=== PATIENT | male | born 1930 | race Caucasian/White ===

== ENCOUNTER 2016-09-30 10:55 | Inpatient (IN) | payer MEDICARE ==
--- NOTE | ~2016-09-30 | CN ---
Consultation Report [facility] [address] [place]. [address] NAME: AR VELÁSQUEZ : 32 STATUS : ADM IN PAT#: [id number] AGE: 85 ADM/REG DATE : 09/30/16 MR#: [id number] REPORT SERV DATE: 10/01/16 DICTATED BY: SKYLAR TIPTON JR. DATE: 10/01/16 REPORT STATUS : Draft TRANSCRIBED BY: MODEmery DATE: 10/01/16 CARDIOLOGY CONSULTATION DATE OF CONSULTATION: 10/01/2016 REFERRING PHYSICIANS: Dr. Caitlyn Humphrey, Dr. Hernandez. REASON FOR CONSULTATION: Regarding acute evm-HL-rwtxwgstc VA in the setting of acute kidney injury and significant anemia. HISTORY OF PRESENT ILLNESS: Ar Velásquez is an 85-year-old white male, status post CABG in the distant past with bare metal stenting since that time. He was doing well when seen in the office last office visit several months ago without angina. He began having left shoulder and left upper extremity pain and discomfort, improvement with nitroglycerin per EMS. No further chest pain since arriving at the hospital. Pertinent laboratory studies included initial troponin of only 0.1, rising today to 1.4. Hemoglobin 7.0, today 7.4 with normal MCV. BUN and creatinine 56 and 2.3 respectively. EKG shows old inferior infarction with old ventricular premature complexes with right bundle branch block conduction. 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 ALLERGIES: CODEINE ALLERGY. MEDICATIONS: Home medication list is reviewed. Hospital medicine list reviewed. SOCIAL HISTORY: Nonsmoker. Supportive family. No illicit drugs. FAMILY HISTORY: Noncontributory. PREVIOUS SURGICAL HISTORY: See above plus cholecystectomy. PHYSICAL EXAMINATION: VITAL SIGNS: Blood pressure 142/65, pulse is 66 and regular, respirations 18, afebrile. HEENT: No xanthelasma. NECK: Jugular venous distention is present at 45 degrees, no thyromegaly, no carotid bruit. LUNGS: Clear to auscultation and percussion. COR: No thrills, heaves, normal S1, S2. No gallop. No rub. Mitral insufficiency murmur, Consultation Report [facility] [address] [place]. [address] NAME: AR VELÁSQUEZ : 32 STATUS : ADM IN PAT#: [id number] AGE: 85 ADM/REG DATE : 09/30/16 MR#: [id number] REPORT SERV DATE: 10/01/16 DICTATED BY: SKYLAR TIPTON JR. DATE: 10/01/16 REPORT STATUS : Draft TRANSCRIBED BY: MODL DATE: 10/01/16 no third sound appreciated. ABD: Soft, nontender, no hepatosplenomegaly, no mass. EXT: Without edema or pulse deficit. MS: Back without spine or costovertebral angle tenderness. NEURO: Symmetric findings. DISCUSSION: Acute cbr-GH-uzhouxscw VA in the setting of profound anemia with normocytic indices. Acute kidney injury with a rise in BUN and creatinine to 56 and 2.3, in the past creatinine approximately 1.7. No further chest pain. Agree with transfusion 1 unit. Agree with nitrates. Conservative treatment for now in view of profound anemia, unexplained, and acute kidney injury. Renal consult. Echocardiogram. Thank you for this consultation. AAMIR/SHARITA Skylar Tipton Jr., M.D. / [id number] CC: Alessia Yan M.D.
--- NOTE | ~2016-09-30 | CN ---
Consultation Report [facility] [address] [place]. [address] NAME: AR VELÁSQUEZ : 32 STATUS : ADM IN PAT#: [id number] AGE: 85 ADM/REG DATE : 09/30/16 MR#: [id number] REPORT SERV DATE: 10/01/16 DICTATED BY: DATE: REPORT STATUS : Draft TRANSCRIBED BY: MODEmery DATE: 10/01/16 CONSULTATION REPORT DATE OF CONSULTATION: REASON FOR CONSULTATION: Acute kidney injury. HISTORY OF PRESENT ILLNESS: Mr. Velásquez is an 85-year-old white male with a history of CKD, stage III, follows in our office with Dr. Sotomayor with baseline creatinine of 1.6 to 2. On his last two office visits, his creatinine has been around 1.5. His last was in the middle of last summer. He presented to the hospital yesterday with chest pain. He states he has really not been feeling well for approximately a month and stated he was having some decreased activity tolerance. 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 He states Friday he had a good day, but then awoke Friday morning not feeling well, developed chest pain, and presented to the emergency department. He was found to have elevated troponin. He was also found to have a creatinine of 2.4, it is down to 2.2 with hydration overnight. BELKIS inhibitor and Lasix have both been held, and we have been asked to see him in consultation. His EF has gone from 45 % to 47%, down to 40%. He has severe MR. He states that has been usual for some time now. He states he feels much better today. He has also been found to have significant anemia. On his last office visit in October, his hemoglobin was 14 and it is 7 on check here. He denies any melena and no bright red blood per rectum. He states that a couple of days prior to presentation he was having trouble eating and some problems with constipation. PAST MEDICAL HISTORY: CKD; diabetes; hypertension; hyperlipidemia; atrial fibrillation; coronary artery disease, status post bypass and stenting; severe mitral regurg; and PVCs. He has had a cholecystectomy and coronary bypass. FAMILY MEDICAL HISTORY: MO. SOCIAL HISTORY: He is , lives with . He is very active. He has distant history of tobacco. No alcohol or illicit drug use. ALLERGIES: CODEINE. MEDICATIONS: At home were aspirin, atorvastatin, Caltrate with vitamin D, Coreg, Plavix, Lasix, glipizide, and lisinopril, and here the Lasix and lisinopril have both been held. REVIEW OF SYSTEMS: A 12-point review of systems obtained, negative with the exception of that in the HPI. PHYSICAL EXAMINATION: VITAL SIGNS: Temp 97.6, blood pressure 138/64, pulse 60, respiratory rate 16, and O2 Consultation Report [facility] [address] [place]. [address] NAME: AR VELÁSQUEZ WALTER : 32 STATUS : ADM IN [facility]#: [id number] AGE: 85 ADM/REG DATE : 09/30/16 MR#: [id number] REPORT SERV DATE: 10/01/16 DICTATED BY: DATE: REPORT STATUS : Draft TRANSCRIBED BY: MODL DATE: 10/01/16 saturation is 98% on 2 liters. GENERAL: This is a pleasant, cooperative, white male. He is awake, alert, and oriented x3, in no acute distress, and answers questions appropriately. HEENT: Normocephalic and atraumatic. Conjunctivae are clear. Sclerae are anicteric. Oral mucosa is moist. NECK: Supple. Neck veins flat. RESPIRATIONS: Even and unlabored. Breath sounds are clear to auscultation. HEART: Rate is regular. I did not hear any rub, but he does have a 2/6 systolic ejection murmur. No gallop. ABDOMEN: Soft and nontender. Bowel sounds are active. No masses or hepatosplenomegaly. No bruits. No CVA tenderness. BACK: Within normal limits. EXTREMITIES: No edema, cyanosis, or clubbing. SKIN: Warm, dry, and intact. No unusual rashes or skin lesions. NEURO: Generalized weakness. No focal deficits. Mood and affect, pleasant and appropriate. PERTINENT LABS AND X-RAYS: Sodium 146, potassium 4.5, chloride 111, CO2 of 27, BUN 56, creatinine of 2.2, and calcium of 8. WBC 6, H and H 7 and 23, and platelets 180,000. Last troponin was 1.42. Hemoglobin A1c of 7.9. He has a left atrophic kidney on a renal ultrasound. No obstruction. IMPRESSION: 1. Acute kidney injury. 2. Chronic kidney disease, stage III. 3. Anemia, that is acute. 4. Pzb-VX-rurebpocq myocardial infarction. 5. Hypertension. 6. Diabetes. 7. Severe mitral regurgitation. 8. Atrial fibrillation. PLAN/RECOMMENDATION: Acute kidney injury on CKD. Here with chest pain, yva-FD-wicjxeyhf [place]. Creatinine is down with IV fluids. His anemia is new and quite significant, wonder if anemia is the cause of his acute renal failure, plus or minus some dehydration. Agree with holding of BELKIS inhibitor and Lasix. We will order urine studies. We will follow along with you. Thank you for the consultation. DEX/SHARITA Dasha Consultation Report [address] [address] NAME: AR VELÁSQUEZ WALTER : 32 STATUS : ADM IN [facility]#: [id number] AGE: 85 ADM/REG DATE : 09/30/16 MR#: [id number] REPORT SERV DATE: 10/01/16 DICTATED BY: DATE: REPORT STATUS : Draft TRANSCRIBED BY: SHARITA DATE: 10/01/16 EMELINA Samson / [id number] CC: MD Prasanth Lindo M.D.
--- NOTE | ~2016-09-30 | HP ---
History And Physical [place] [address] [facility] [place]. [address] NAME: AR VELÁSQUEZ : 32 STATUS : ADM IN PAT#: [id number] AGE: 85 ADM/REG DATE : 09/30/16 MR#: [id number] REPORT SERV DATE: 09/30/16 DICTATED BY: JR. MILLER WILLIAM JOHN DATE: 09/30/16 REPORT STATUS : Draft TRANSCRIBED BY: SHARITA DATE: 09/30/16 DATE OF ADMISSION: 09/30/2016 AIR DIRECTOR: Sean Tipton M.D. HISTORY OF PRESENT ILLNESS: This is an 85-year-old male with a history of coronary artery disease, history of bypass graft who presents to the emergency room with complaint of left arm and neck pain. I discussed the case with Dr. Montgomery in the emergency room. The patient says he has had vertigo for one week with poor oral intake. He did well until this morning when he awakened at 5 a.m. feeling fine and at 6 a.m., he had sudden onset of sub axillary left arm and left neck pain, rated 5/10 without radiation. There is nausea but no vomiting. No diaphoresis, shortness of breath, or dizziness accompanying it. It resolved with medical attention/nitroglycerin. He summoned EMS and was given nitroglycerin, at which time the pain resolved. The patient is unsure if this is like his prior heart- related pain. The patient is followed by Dr. Tipton and Dr. Red. He says he has a nephrology appointment in December. He is unclear of his baseline creatinine. The patient is noted to have kidney injury as well as anemia, it is unclear of the duration. We have no labs at [facility] since 2013. He does say his stools are brown to yellow, never black, never red. Again, he is unsure of his baseline creatinine, but does have nephrology appointment scheduled. PAST MEDICAL HISTORY: Includes: 1. Coronary artery disease with bypass graft in 1994, myocardial infarction in 1994 and stents since. 2. History of left inguinal hernia repair. 3. Hypertension. 4. Dyslipidemia. 5. Diabetes mellitus type 2. 6. History of cholecystectomy. 7. History of parathyroidectomy. 8. History of congestive heart failure. 9. Chronic obstructive pulmonary disease. 10.History of mitral valve regurgitation. MEDICATIONS: Include aspirin 81 mg twice a day, Lipitor 80 daily, calcium plus D 600 daily, Coreg 3.125 b.i.d., Plavix 75 daily, Lasix 20 daily and 10 at night, glipizide 2.5 mg twice a day, lisinopril 20 mg twice a day. ALLERGIES: CODEINE WHICH MAKES HIM FEEL "LOOPY." FAMILY HISTORY: Mother at age 86 of congestive heart failure. Father at age 85 of complications of a hip fracture. History And Physical [address] [address] NAME: AR VELÁSQUEZ : 32 STATUS : ADM IN PAT#: [id number] AGE: 85 ADM/REG DATE : 09/30/16 MR#: [id number] REPORT SERV DATE: 09/30/16 DICTATED BY: JR. MILLER WILLIAM JOHN DATE: 09/30/16 REPORT STATUS : Draft TRANSCRIBED BY: SHARITA DATE: 09/30/16 SOCIAL HISTORY: Lives in [place] with his and great grandson. He is a retired labor. Denies alcohol or illicit drugs. He quit smoking for 50 years. Code status was discussed. He desires full resuscitative measures. REVIEW OF SYSTEMS: Negative and all 12 systems reviewed except he does admit to decreased appetite, nausea without vomiting, vertigo and "yellow" stools. PHYSICAL EXAMINATION: VITAL SIGNS: Temperature 98.2, blood pressure 152/58, heart rate 71, respiratory rate 16. GENERAL: The patient is alert and oriented, in no acute distress. HEENT: His pupils are equal, round, reactive to light. Extraocular motion intact. Sclerae anicteric. Oropharynx clear. NECK: Supple. There is no jugular venous distention, thyromegaly, bruits. LUNGS: Clear to auscultation bilaterally with symmetrical chest rise. CARDIOVASCULAR: S1 and S2. Point of maximal impulse is normal. There was a 4/6 holosystolic murmur at the apex. ABDOMEN: Soft, nontender, bowel sounds present. No hepatosplenomegaly. EXTREMITIES: Show no clubbing, cyanosis, edema. NEUROLOGIC: Cranial nerves II through XII are intact. Strength and sensation were full and equal throughout. LYMPH NODE SURVEY: Negative in cervical and supraclavicular regions. DERMATOLOGIC: No rash or other lesions noted. LABORATORY DATA: White count 7.4, hemoglobin 7, platelets 187, mean corpuscular volume of 82.6. PT 14.7 with an INR of 1.2. PTT of 32.2. Sodium 139, potassium 4.6, chloride 106, bicarb 28, BUN 68, creatinine 2.4, glucose 274, calcium 9, magnesium 2.4. Troponin I of 0.1. Chest x-ray, personally reviewed, showed no infiltrate. There was evidence of prior median sternotomy. EKG personally reviewed, shows sinus rhythm at rate of 60 with PVC noted and Q-waves in leads II, III and aVF. ASSESSMENT/PLAN: 85-year-old white male with, 1. Left arm and neck pain relieved with nitroglycerin with a history of coronary artery disease. Troponin of 0.01. EKG without acute changes. We will check an echocardiogram. Check troponin I q.[address] Tipton at patient's request. We will continue his Plavix, aspirin, and beta blockade. We will schedule for stress test. 2. Acute kidney injury with chronic kidney disease, unsure of baseline. He has had poor oral intake while on Lasix and BELKIS inhibitor. We will carefully hydrate. Check his renal ultrasound. Hold his lisinopril and Lasix. Recheck in the morning. May need Nephrology to see. 3. Anemia of uncertain etiology. We will check iron studies, B12, folate and occult blood as well as reticulocyte count. Given the presence of chest pain, we will go ahead and transfuse 1 unit packed red blood cells and recheck an H and H in the morning. 4. Coronary artery disease with history of bypass grafting and stent. 5. Hypertension. We will hold his BELKIS inhibitor. Give as needed hydralazine. 6. Diabetes mellitus type 2. We will hold his oral anti-hypoglycemics. Check hemoglobin History And Physical [address] [address] NAME: AR VELÁSQUEZ : 32 STATUS : ADM IN PAT#: [id number] AGE: 85 ADM/REG DATE : 09/30/16 MR#: [id number] REPORT SERV DATE: 09/30/16 DICTATED BY: JR. MILLER WILLIAM JOHN DATE: 09/30/16 REPORT STATUS : Draft TRANSCRIBED BY: SHARITA DATE: 09/30/[address] him on sliding scale insulin. 7. History of chronic obstructive pulmonary disease. We will continue his home medications. Of note, he is not on home medications. 8. I will follow this patient. WBereniceF/SHARITA Joel Miller Jr, MD / [id number] CC: Alessia Yan M.D.
--- NOTE | ~2016-09-30 | DS ---
Discharge Summary [facility] [address] [place]. [address] NAME: AR VELÁSQUEZ : 32 STATUS : DIS IN PAT#: [id number] AGE: 85 ADM/REG DATE : 09/30/16 MR#: [id number] REPORT SERV DATE: 10/03/16 DICTATED BY: BESS NAIR DATE: 10/02/16 REPORT STATUS : Draft TRANSCRIBED BY: SHARITA DATE: 10/02/16 ADMISSION DATE: 09/30/2016 DISCHARGE DATE: 10/02/2016 CONSULTATIONS: 1. Cardiology, Dr. Sean Tipton Jr. 2. [facility]. PROCEDURES: None. DISCHARGE DIAGNOSES: 1. Symptomatic anemia. 2. Iron deficiency anemia. 3. Severe mitral regurgitation. 4. Acute kidney injury on chronic kidney disease stage 3. 5. Demand ischemia. 6. Hypertension. 7. Diabetes mellitus type 2. 8. History of typical atrial flutter with successful ablation in 2013. 9. History of coronary artery disease, status post remote CABG in 1994. 10.History of chronic premature ventricular contractions. 11.History of chronic obstructive pulmonary disease. HISTORY OF PRESENT ILLNESS: For detailed HPI, please make reference to Dr. Hernandez's dictation on 09/30/2016. In brief, this is an 85-year-old male with medical history significant for coronary artery disease with history of remote bypass graft, who presented to the emergency department with left arm and neck pain. The patient was found to have a hemoglobin of 7. Troponin of 0.10. Creatinine of 2.4. An assessment of symptomatic anemia, acute kidney injury, and demand ischemia was made in the ER, and the patient was admitted to the Hospitalist Service. HOSPITAL COURSE: 1. Symptomatic anemia. The patient reported some neck pain, left hand pain with some dyspnea. Hemoglobin was 7 in the ER. The patient was transfused with one unit of blood due to possible symptoms of angina equivalents. The patient's H and H improved and remained stable at 7.5. The patient reported no further episode of chest discomfort or left arm pain. The patient had no evidence of acute GI bleed or blood loss. Hemoccult x2 was negative. The patient's iron studies revealed significant iron deficiency anemia. The patient was scheduled to have an IV iron infusion as an outpatient on 10/04/2016 at the [facility]. The patient was advised to continue followup with primary care physician as an outpatient. The patient was also advised to continue followup with Nephrology as outpatient. A possible etiology of iron deficiency anemia likely multifactorial, including anemia of chronic disease, nutritional iron deficiency, and chronic kidney disease. 2. Demand ischemia. The patient's troponin on presentation was 0.10, initially trended up and peaked at 1.42. Post transfusion with one unit of packed RBC, the patient's Discharge Summary [address] [address] NAME: AR VELÁSQUEZ : 32 STATUS : DIS IN PAT#: [id number] AGE: 85 ADM/REG DATE : 09/30/16 MR#: [id number] REPORT SERV DATE: 10/03/16 DICTATED BY: BESS NAIR DATE: 10/02/16 REPORT STATUS : Draft TRANSCRIBED BY: MODL DATE: 10/02/16 troponin trended down to 0.48. Etiology of elevated troponin is likely due to demand ischemia secondary to severe anemia. 3. Severe mitral regurgitation. The patient has had an echocardiogram, which confirmed the presence of severe mitral regurgitation. Cardiology discussed the finding with the patient. The patient agreed to have an outpatient mitral valve clip. Cardiology scheduled that appointment for the patient to return to Cardiology Clinic in four weeks' time. 4. Acute kidney injury on chronic kidney disease stage 3. The patient's creatinine on presentation was 2.41. The patient's last known baseline was 1.17. Etiology of acute kidney injury likely due to prerenal azotemia due to severe anemia and hypovolemia. The patient's creatinine trended down from 2.4 to 1.8 after a blood unit transfusion. The patient was also given gentle IV fluid rehydration. At the time of discharge, the patient's creatinine was stable. Nephrology was on board throughout the course of admission. The patient was advised to follow up with Nephrology as an outpatient. 5. Heart failure with reduced EF of 40%. No evidence of acute decompensated heart failure. During the course of this admission, the patient remained euvolemic. The patient was advised to continue home medication as prescribed by Cardiology. 6. Diabetes mellitus type 2. The patient's blood sugar remained stable throughout the course of admission. The patient was given insulin therapy. The patient was advised to resume home dose of glipizide 2.5 mg p.o. b.i.d. 7. Hypertension. The patient's blood pressure remained stable throughout the course of this admission. The patient's lisinopril was held due to acute kidney injury. The patient was advised to continue regular home dose of medication. Advised to continue to hold off lisinopril to follow up with primary care physician and Nephrology. DISCHARGE CONDITION: Stable. DISCHARGE MEDICATIONS: 1. Aspirin 81 mg p.o. daily. 2. Lipitor 80 mg p.o. at bedtime. 3. Coreg 3.125 p.o. b.i.d. 4. Plavix 75 mg p.o. daily. 5. Calcium plus vitamin D 600 mg p.o. at bedtime. 6. Lasix 20 mg p.o. daily. 7. Glipizide 2.5 mg p.o. b.i.d. DISCHARGE FOLLOWUP: 1. Follow up with Nephrology Clinic for IV iron infusion on 10/04/2016. Appointment already arranged by Nephrology team. 2. Follow up with Cardiology within three to four weeks of discharge. 3. Follow up with primary care physician within one to two weeks of discharge. DISCHARGE ACTIVITIES: As tolerated. DISCHARGE DISPOSITION: Home with home PT. Greater than 35 minutes was used to prepare this patient's discharge, reconcile medication, Discharge Summary [address] [address] NAME: RA VELÁSQUEZ : 32 STATUS : DIS IN PAT#: [id number] AGE: 85 ADM/REG DATE : 09/30/16 MR#: [id number] REPORT SERV DATE: 10/03/16 DICTATED BY: BESS NAIR DATE: 10/02/16 REPORT STATUS : Draft TRANSCRIBED BY: MODEmery DATE: 10/02/16 and advise the patient on discharge plans and followup. JEROMEO/SHARITA Bess Nair MD / [id number] CC: MD Prasanth Lindo M.D.
[2016-09-30 10:15] LABS: BASOPHILS 0.3 %; BASOPHILS ABSOLUTE 0.02 10/3/uL (0.0-0.16); EOSINOPHILS 2.6 %; EOSINOPHILS ABSOLUTE 0.19 10/3/uL (0.0-0.53); ER CBC TAT 0 Hrs 07 Mins; HEMATOCRIT 21.4 % (40.0-51.0); IMMATURE GRANULOCYTES 0.1 %; IMMATURE GRANULOCYTES ABSOLUTE 0.01 10/3/uL (0.0-0.11); LYMPHOCYTES 20.2 %; LYMPHOCYTES ABSOLUTE 1.49 10/3/uL (0.67-4.30); MANUAL DIFF NO %; MEAN CORPUS HGB CONC 32.7 g/dL (32.0-36.0); MEAN CORPUSCULAR VOLUME 82.6 fL (80-100); MONOCYTES 5.3 %; MONOCYTES ABSOLUTE 0.39 10/3/uL (0.21-1.20); NEUTROPHILS 71.5 %; NEUTROPHILS ABSOLUTE 5.27 10/3/uL (2.02-8.40); PLATELET COUNT 187 10/3/uL (150-400); RBC DISTRIBUTION WIDTH 17.5 % (12.0-16.0); RED CELL COUNT 2.59 10/6/uL (4.7-6.1); WHITE BLOOD CELLS 7.4 10/3/uL (4.5-10.5)
[2016-09-30 10:31] LABS: INTERNATIONAL NORMAL RATI 1.2 UNITS (-); PARTIAL THROMBO TIME 32.2 SEC (22.5-37.2); PROTIME (NOT ORD) 14.7 SEC (12.0-14.5)
[2016-09-30 10:35] LABS: BUN (BLOOD UREA NITROGEN) 68 MG/DL (6-23); CHEST PAIN PROFILE TAT 0 Hrs 27 Mins; CHLORIDE, SERUM 106 MMOL/L (96-112); CO2 (CARBON DIOXIDE) 28 MMOL/L (24-34); CREATININE 2.41 MG/DL (0.70-1.30); GFR AFRICAN AMERICAN 28 ML/MIN (>=60); GFR NON AFRICAN AMERICAN 24 ML/MIN (>=60); GLUCOSE, SERUM 274 MG/DL (60-99); POTASSIUM, SERUM 4.6 MMOL/L (3.5-5.3); SODIUM, SERUM 139 MMOL/L (135-148)
[~2016-09-30 10:55] MED LIST: ASAB PO; CALTRA600D PO; COREG3 PO; ELIQUIS 5 MG TAB5 MG PO; GLUCXL2.5 PO; GLYNASE3 PO; HALF81 PO; L20 PO; LIPITOR40 PO; LIPITOR80 MG PO; NIASPAN500 PO; NITROSPRAY SL; NITROSTAT0.4 MG SL; PLAVIX PO; PRIN20 PO
[2016-09-30 17:17] LABS: FERRITIN 17 NG/ML (26-388); IRON BINDING CAPACITY 346 MCG/DL (250-450); IRON, SERUM 11 MCG/DL (35-150)
[2016-09-30 17:19] LABS: FOLATE 14.7 NG/ML (>5.2)
[2016-09-30 17:52] LABS: RETICULOCYTE COUNT 3.6 % (0.5-2.9); RETICULOCYTE COUNT ABSOLUTE 94.8 10/3/uL (20.2-119.8)
[2016-10-01 02:27] LABS: CHLORIDE, SERUM 111 MMOL/L (96-112); CO2 (CARBON DIOXIDE) 27 MMOL/L (24-34); CREATININE 2.28 MG/DL (0.70-1.30); GFR AFRICAN AMERICAN 30 ML/MIN (>=60); GFR NON AFRICAN AMERICAN 26 ML/MIN (>=60); POTASSIUM, SERUM 4.5 MMOL/L (3.5-5.3)
[2016-10-01 02:31] LABS: BUN (BLOOD UREA NITROGEN) 56 MG/DL (6-23); GLUCOSE, SERUM 155 MG/DL (60-99); SODIUM, SERUM 146 MMOL/L (135-148)
[2016-10-01 02:38] LABS: BASOPHILS 0.3 %; BASOPHILS ABSOLUTE 0.02 10/3/uL (0.0-0.16); EOSINOPHILS 3.5 %; EOSINOPHILS ABSOLUTE 0.21 10/3/uL (0.0-0.53); HEMATOCRIT 23.1 % (40.0-51.0); HEMOGLOBIN 7.4 g/dL (13.6-17.8); IMMATURE GRANULOCYTES 0.2 %; IMMATURE GRANULOCYTES ABSOLUTE 0.01 10/3/uL (0.0-0.11); LYMPHOCYTES 33.1 %; LYMPHOCYTES ABSOLUTE 1.99 10/3/uL (0.67-4.30); MEAN CORPUSCULAR HEMOGLOB 27.1 pg (26.0-34.0); MEAN CORPUSCULAR VOLUME 84.6 fL (80-100); MONOCYTES ABSOLUTE 0.54 10/3/uL (0.21-1.20); NEUTROPHILS 53.9 %; NEUTROPHILS ABSOLUTE 3.24 10/3/uL (2.02-8.40); PLATELET COUNT 180 10/3/uL (150-400); RBC DISTRIBUTION WIDTH 16.6 % (12.0-16.0); RED CELL COUNT 2.73 10/6/uL (4.7-6.1)
[2016-10-01 02:39] LABS: MANUAL DIFF NO %
[2016-10-01 21:00] LABS: ASCORBIC ACID (UR NOT ORDER) NEG (NEG); BILIRUBIN, URINE NEGATIVE (NEG); KETONE, URINE NEGATIVE (NEG); LEUKOCYTE ESTERASE(NOT OR NEG (NEG); WBC (NOT ORDERED) (RFLEX) < 1 (0-5)
[2016-10-01 21:14] LABS: CREATININE, URINE 74.3 MG/DL
[2016-10-02 04:58] LABS: BASOPHILS 0.2 %; BASOPHILS ABSOLUTE 0.01 10/3/uL (0.0-0.16); EOSINOPHILS 3.7 %; EOSINOPHILS ABSOLUTE 0.23 10/3/uL (0.0-0.53); HEMATOCRIT 22.1 % (40.0-51.0); HEMOGLOBIN 7.3 g/dL (13.6-17.8); IMMATURE GRANULOCYTES 0.2 %; IMMATURE GRANULOCYTES ABSOLUTE 0.01 10/3/uL (0.0-0.11); LYMPHOCYTES 32.5 %; MANUAL DIFF NO %; MEAN CORPUSCULAR HEMOGLOB 28.2 pg (26.0-34.0); MEAN CORPUSCULAR VOLUME 85.3 fL (80-100); MEAN PLATELET VOLUME 11.2 fL (9.2-13.0); MONOCYTES 7.6 %; MONOCYTES ABSOLUTE 0.47 10/3/uL (0.21-1.20); NEUTROPHILS 55.8 %; NEUTROPHILS ABSOLUTE 3.44 10/3/uL (2.02-8.40); PLATELET COUNT 167 10/3/uL (150-400); RBC DISTRIBUTION WIDTH 16.8 % (12.0-16.0); RED CELL COUNT 2.59 10/6/uL (4.7-6.1); WHITE BLOOD CELLS 6.2 10/3/uL (4.5-10.5)
[2016-10-02 05:31] LABS: BUN (BLOOD UREA NITROGEN) 42 MG/DL (6-23); CALCIUM, SERUM 8.7 MG/DL (8.5-10.4); CHLORIDE, SERUM 113 MMOL/L (96-112); CK-MB 3.4 NG/ML; CO2 (CARBON DIOXIDE) 24 MMOL/L (24-34); CPK 65 U/L (0-200); CREATININE 1.87 MG/DL (0.70-1.30); GFR AFRICAN AMERICAN 38 ML/MIN (>=60); GFR NON AFRICAN AMERICAN 33 ML/MIN (>=60); GLUCOSE, SERUM 153 MG/DL (60-99); PHOSPHORUS, SERUM 3.2 MG/DL (2.5-4.5); SODIUM, SERUM 144 MMOL/L (135-148); TROPONIN I 0.48 NG/ML (<0.05)
[2016-10-02] MEDS ORDERED: L20 PO (15:55)
[2016-10-03] MEDS ORDERED: HALF81 PO (02:34)
[2016-10-03] MEDS ORDERED: L20 PO (02:35)
[2016-10-03] MEDS ORDERED: CALTRA600D PO (02:35)
[2016-10-03] MEDS ORDERED: COREG3 PO (02:35)
[2016-10-03] MEDS ORDERED: LIPITOR80 MG PO (02:35)
[2016-10-03] MEDS ORDERED: PLAVIX PO (02:35)
[2016-10-03] MEDS ORDERED: GLUCXL2.5 PO (02:37)
[2016-10-03] MEDS ORDERED: MYLICON 40 MG T40 MG PO (02:39)
[2016-11-21] MEDS ORDERED: COREG3 PO (11:26)
[2016-11-21] MEDS ORDERED: L40 PO (11:26)
[2016-11-21] MEDS ORDERED: PLAVIX PO (11:26)
[2016-11-21] MEDS ORDERED: GLUCXL2.5 PO (11:27)
[2016-11-21] MEDS ORDERED: FERROUS SULF325 M1 PO (11:27)
[2016-11-21] MEDS ORDERED: LIPITOR80 MG PO (11:27)
[2016-11-21] MEDS ORDERED: NITROQUICK0.4 MG SL (11:28)
[2016-11-21] MEDS ORDERED: ZESTRIL20 MG PO (11:28)
[2016-11-21] MEDS ORDERED: CALTRA600D PO (11:29)
[2017-02-21] MEDS ORDERED: CORDARONE PO (12:16)
[2017-02-21] MEDS ORDERED: TESS PO (12:16)
[2017-02-21] MEDS ORDERED: APRES25 PO (12:17)
[2017-02-21] MEDS ORDERED: BUM2 PO (12:17)
[2017-02-21] MEDS ORDERED: PROTONIX PO (12:18)
[2017-02-21] MEDS ORDERED: LOP25 PO (12:18)
[2017-02-21] MEDS ORDERED: MELATONIN5 M1 PO (12:18)
[2017-02-21] MEDS ORDERED: NOVOPEN SC (12:18)
[2017-02-21] MEDS ORDERED: SENTAB PO (12:19)
[2017-02-21] MEDS ORDERED: DIABET2.5 PO (12:24)
== END 2016-10-02 17:20 | disposition home health service (06) | DRG 812 ==
LOC: ER 10:55 → 6NO 12:48
PROVIDERS: Emergency Medicine; Hospitalist; Internal Medicine Cardiovascular Disease
PROC: 30233N1 Transfusion of Nonautologous Red Blood Cells into Peripheral Vein, Percutaneous Approach (ICD-10-PCS; principal; 2016-09-30)
DX: D50.9 Iron deficiency anemia, unspecified (principal); N17.9 Acute kidney failure, unspecified; I24.8 Other forms of acute ischemic heart disease; E11.22 Type 2 diabetes mellitus with diabetic chronic kidney disease; J44.9 Chronic obstructive pulmonary disease, unspecified; E86.1 Hypovolemia; I12.9 Hypertensive chronic kidney disease with stage 1 through stage 4 chronic kidney disease, or unspecified chronic kidney disease; I34.0 Nonrheumatic mitral (valve) insufficiency; N18.3 Chronic kidney disease, stage 3 (moderate); I25.10 Atherosclerotic heart disease of native coronary artery without angina pectoris; Z95.1 Presence of aortocoronary bypass graft
CPT/HCPCS: 36415; 71010; 76775; 80048; 80069; 81001; 82272; 82550; 82553; 82570; 82607; 82728; 82746; 82962; 83036; 83540; 83550; 83615; 83735; 83880; 84300; 84443; 84484; 85025; 85045; 85610; 85730; 86850; 86900; 86901; 86920; 93005; 93306; 99285; A9270-GY; J2405; J2550; P9016

== ENCOUNTER 2016-10-03 00:26 | Inpatient (IN) | payer MEDICARE ==
--- NOTE | ~2016-10-03 | DS ---
Discharge Summary [facility] [address] [place]. [address] NAME: AR VELÁSQUEZ : 32 STATUS : DIS IN PAT#: [id number] AGE: 85 ADM/REG DATE : 10/03/16 MR#: [id number] REPORT SERV DATE: 10/08/16 DICTATED BY: KATHY CLAY DATE: 10/07/16 REPORT STATUS : Draft TRANSCRIBED BY: MODL DATE: 10/07/16 ADMISSION DATE: 10/03/2016 DISCHARGE DATE: 10/07/2016 DIAGNOSES ON DISCHARGE: 1. Gastrointestinal bleed with acute blood loss anemia, status post EGD performed by Dr. Miguel Abdi on 10/03/2016 with results of the EGD showing reflux esophagitis, gastritis, hiatal hernia, duodenitis, and 1 ulcer with duodenal ulcer with a clean base, normal third part of the duodenal which has been biopsied. 2. Small non-ST myocardial infarction in a patient with a history of coronary artery disease, restarted on aspirin, Plavix, and beta steffi during this hospitalization with no further bleeding. 3. Chronic kidney disease stage 3. 4. Severe mitral regurgitation. 5. Hypertension. 6. Diabetes type 2. 7. History of atrial flutter, status post prior ablation in 2013. 8. Acute blood loss anemia, status post blood transfusion. 9. Congestive heart failure, chronic, with an ejection fraction 40%. 10.Diabetes type 2, noninsulin dependent. 11.Hyperlipidemia. CONSULTANTS ON THE CASE: 1. Sean Tipton M.D., Cardiology. 2. Miguel Abdi M.D., GI. PROCEDURES DONE DURING THIS HOSPITALIZATION: Include an EGD performed on 10/03/2016 with results showing duodenal ulcer with a clean base, duodenitis, gastritis, hiatal hernia, and reflux esophagitis.. HOSPITAL COURSE: This is a very pleasant, 85-year-old gentleman who has been admitted by Dr. Jl Tellez on 10/03/2016 with bleeding per rectum and chest pain. He does have a history of chronic kidney disease stage 3, coronary artery disease with CABG, history of chronic anemia, just recently discharged from [facility] where has been admitted with an acute on chronic kidney disease and symptomatic anemia. For further details, please see history and physical exam at Dr. Jl Tellez. The patient was home for a very short period of time, and according to the patient and the , he had gone to the bathroom and then he had a bowel movement that had some blood in the stools. The patient also after that about one hour and a half later while he was resting on his couch he started to have some left- sided chest pain radiating to the left arm. As a result, after taking to nitroglycerin, since the pain had not been relieved, EMS had been called and the patient had been brought to [facility]. For further details, see history and physical of Dr. Jl Tellez. The patient has been placed on Protonix drip, serial H and H. GI has been consulted as well as Cardiology, Dr. Tipton. Initially, his cardiac enzymes on admission had been elevated with a troponin that was jumping from 0.34 to 1.65, 1.91, 2.45, and then trending down to 0.79. Likely the patient, according to Cardiology, had sustained a known, very small, non-ST [place]. Discharge Summary [address] [place]. [address] NAME: AR VELÁSQUEZ WALTER : 32 STATUS : DIS IN PAT#: [id number] AGE: 85 ADM/REG DATE : 10/03/16 MR#: [id number] REPORT SERV DATE: 10/08/16 DICTATED BY: KATHY CLAY DATE: 10/07/16 REPORT STATUS : Draft TRANSCRIBED BY: SHARITA DATE: 10/07/16 However, his chest pain has been completely resolved. Initially, his aspirin and Plavix had been withheld. He has been seen by Dr. Abdi from the GI Service, and an EGD has been scheduled. The patient underwent the EGD with results showing clean based duodenal ulcer as well as hiatal hernia and gastritis. The patient has been restarted when was okayed by GI on aspirin and Plavix, and he has been watched closely for any signs of active bleeding. The patient did not experience any signs of bleeding. He had bowel movements without blood. There was no plan for inpatient colonoscopy during this hospitalization, and as a result, the patient has been okayed to discharge home from the GI standpoint on 10/07/2016. The patient have been continued on his beta-blockers as well as his Lasix has been restarted also during this hospitalization. The patient received iron infusion due to his history of iron-deficiency anemia. On 10/07/2016, the patient has been ready for discharge. MEDICATIONS AT DISCHARGE: Include aspirin 81 mg p.o. daily, Lipitor 80 mg at bedtime, Coreg 3.125 p.o. b.i.d., Plavix 75 p.o. daily, Lasix 20 mg p.o. daily, Protonix 40 b.i.d., MiraLAX one packet p.o. b.i.d., calcium and vitamin D 600 at bedtime, and Glucotrol 2.5 p.o. b.i.d. The patient has been advised to follow up with his primary care provider, Dr. Prasanth Red, his PCP in one week after discharge. Cardiology followup with Dr. Tipton in two weeks after discharge as well as GI followup with Dr. Abdi in two to three weeks after discharge. The patient has been advised to present back to the emergency room for any signs of active bleeding. That has been discussed extensively with the patient. All the questions have been answered in full. Please fax a copy of history, physical exam, all the tests and procedure done during this hospitalization, consults, as well as discharge summaries to his primary care provider, Dr. Prasanth Rde as well as his civil engineering drafter, Dr. Tipton, and Nephrology as recommended. CF/MODL Kathy Clay M.D. / [id number] CC: Alessia Mcclendon M.D.
--- NOTE | ~2016-10-03 | HP ---
History And Physical [facility] [address] [facility] [place]. [address] NAME: AR VELÁSQUEZ : 32 STATUS : ADM IN PAT#: [id number] AGE: 85 ADM/REG DATE : 10/03/16 MR#: [id number] REPORT SERV DATE: 10/03/16 DICTATED BY: JL SUTTON DATE: 10/03/16 REPORT STATUS : Draft TRANSCRIBED BY: MODL DATE: 10/03/16 DATE OF ADMISSION: 10/03/2016 CHIEF COMPLAINT: Chest pain and bleeding per rectum. HISTORY OF PRESENT ILLNESS: This is an 85-year-old male, who has history of anemia, chronic kidney disease, coronary artery disease with history of CABG, who was discharged from [facility] yesterday in the evening. The patient was at home for a very short time and according to his , he had gone to the bathroom to have a bowel movement and had not come out in 45 minutes. She checked on him once, tapped on the door and he said he was okay. She went another time again and he told her that he had passed some blood in his stool. He had the hard time passing his stool due to constipation and he admitted he had to strain a lot. According to him, the stool was half light brown and half dark. He is unable to really give a good history about the color, but he says there was blood. Anyway, about half an hour or 45 minutes later, when he was resting on the couch, he started having left-sided chest pain radiating to his arm. The pain lasted about 45 minutes or so and despite two nitroglycerin, he was not relieved. They called EMS and they gave him an additional nitroglycerin with some relief in pain. The patient was brought to the emergency room to be evaluated. In the emergency room, initial workup revealed an elevation in his troponin along with stool Hemoccult was positive. He continued to be anemic and Hospitalist Service is asked to admit him for further evaluation and treatment. At the time of my evaluation, he denied any chest pain or palpitations. He had no orthopnea. He did not have any cough, hemoptysis, night sweats, or weight loss. He denied any recent falls or loss of consciousness. No history of recent nausea, vomiting, diarrhea, hematemesis, or hematuria. No other history of recent travel or exposures, other than those mentioned above. PAST MEDICAL HISTORY: Significant for history of anemia of unknown etiology, chronic kidney disease, COPD, coronary artery disease with CABG, essential hypertension, diabetes mellitus type 2, and atrial fibrillation. He is on aspirin and Plavix. SOCIAL HISTORY: He does not smoke, drink, or use recreational drugs. FAMILY HISTORY: Noncontributory. MEDICATIONS AT HOME: Reviewed by me in the chart today and reordered by me. REVIEW OF SYSTEMS: As in history of present illness. All other systems were reviewed in detail and are quite unremarkable. PHYSICAL EXAMINATION: GENERAL: This is a pleasant 85-year-old, not in any acute distress. History And Physical [address] [address] NAME: AR VELÁSQUEZ : 32 STATUS : ADM IN [facility]#: [id number] AGE: 85 ADM/REG DATE : 10/03/16 MR#: [id number] REPORT SERV DATE: 10/03/16 DICTATED BY: JL SUTTON DATE: 10/03/16 REPORT STATUS : Draft TRANSCRIBED BY: SHARITA DATE: 10/03/16 HEENT: His head is atraumatic, normocephalic. He is alert, awake, oriented to time, place, and person. Pupils are equal and reacting to light and accommodating. External ocular muscles are intact. Membranes are moist and pink. Sclerae are nonicteric. NECK: Supple with no jugular venous distention, lymphadenopathy, or thyromegaly. LUNGS: Clear to auscultation with no wheezes, rubs, or crackles. HEART: Sounds were regular with no murmurs, rubs, or gallops. ABDOMEN: Soft, nontender. Bowel sounds are present. EXTREMITIES: Showed no cyanosis, clubbing, or edema. NEUROLOGIC: Grossly intact with no focal sensory or motor deficits. Higher functions appeared intact. VITAL SIGNS: His temperature today was 99.2, pulse 78, respirations 15 a minute, blood pressure was 122/59, and oxygen saturations were 98%, breathing 2 L of oxygen via nasal cannula. LABORATORY DATA: Reviewed on the KBLE system showed a sodium of 143, potassium 4.7, chloride 110, CO2 of 24, BUN was 44, and a creatinine of 1.92. Glucose was 212. His CBC showed a white blood cell count of 8700, hemoglobin was 7.2, hematocrit 21.7, which has been about the same since his discharge from here. His platelet count was 179. A 12-lead EKG done in the emergency room reviewed and interpreted by me. There is atrial fibrillation at a rate of 78 per minute with right bundle-branch block. Films of the chest x-ray were reviewed by me on the PACS today and interpreted by me along with CT of the abdomen and pelvis. There is no acute lobar consolidations or effusions seen in the chest x-ray. CT of the abdomen did not reveal any acute intraabdominal or pelvic pathology. Again, stool Hemoccult was positive in the emergency room per ER MD. IMPRESSION: 1. Chest pain. 2. Acute gastrointestinal bleeding. 3. Symptomatic anemia. 4. Chronic kidney disease. 5. Chronic obstructive pulmonary disease. 6. Coronary artery disease with coronary artery bypass graft. 7. Essential hypertension. 8. Diabetes mellitus type 2. 9. Elevated troponin. PLAN: We will admit Mr. Velásquez to the Hospitalist Service with telemetry. We will follow serial troponin to rule out acute coronary syndrome, but it could also be secondary to his anemia and straining. We will go ahead and consult Cardiology Service to evaluate him. Meanwhile, we will keep him n.p.o. and consult Gastroenterology Service to see him in the morning. We will start him on Protonix infusion. We will type and cross and transfuse one unit of packed red cells now for his symptomatic anemia. Follow hemoglobin and hematocrit levels. We will hold his aspirin and Plavix tonight and resume once GI workup is complete. Meanwhile, we will place him on bronchodilator treatments, continue supplemental oxygen. We will also start him on blood sugar control with NovoLog given subcutaneously per sliding scale. We will place him on SCDs for DVT prophylaxis while he is here. I have discussed the above plans with the patient and his . Questions were answered and they are History And Physical [address] [place]. [address] NAME: AR VELÁSQUEZ WALTER : 32 STATUS : ADM IN [facility]#: [id number] AGE: 85 ADM/REG DATE : 10/03/16 MR#: [id number] REPORT SERV DATE: 05/04/17 DICTATED BY: JL SUTTON DATE: 10/03/16 REPORT STATUS : Draft TRANSCRIBED BY: SHARITA DATE: 10/03/16 agreeable to the above recommendations. Hospitalist Service will be following him during his stay here. /SHARITA Jl Sutton M.D. / [id number] CC: Alessia Mcclendon M.D.
--- NOTE | ~2016-10-03 | EGD ---
EGD REPORT [facility] [address] [address] NAME: AR VELÁSQUEZ : 32 STATUS : ADM IN PAT#: [id number] AGE: 85 ADM/REG DATE : 10/03/16 MR#: [id number] REPORT SERV DATE: 10/03/16 DICTATED BY: LUKAS DENNY DATE: 10/03/16 REPORT STATUS : Draft TRANSCRIBED BY: [facility] DATE: 10/03/16 Endoscopy Center Patient Name: Ar Velásquez Date of : 1930 Attending MD: LUKAS DENNY MD Procedure Date No Time: 10/03/2016 Procedure: Upper GI endoscopy Indications: Epigastric abdominal pain, Abdominal pain in the left upper quadrant, Iron deficiency anemia, Heartburn Medicines: Propofol per Anesthesia Complications: No immediate complications. Procedure: Pre-Anesthesia Assessment: - ASA Grade Assessment: IV - A patient with severe systemic disease that is a constant threat to life. After obtaining informed consent, the endoscope was passed under direct vision. Throughout the procedure, the patient's blood pressure, pulse, and oxygen saturations were monitored continuously. The GIF [id number] was introduced through the mouth, and advanced to the third part of duodenum. The upper GI endoscopy was accomplished without difficulty. The patient tolerated the procedure well. Findings: LA Grade A (one or more mucosal breaks less than 5 mm, not extending between tops of 2 mucosal folds) esophagitis with no bleeding was found in the entire esophagus. A medium-sized hiatus hernia was present. as seen on retroflexion Diffuse mild inflammation characterized by congestion (edema) and erythema was found in the entire examined stomach. Biopsies were taken with a cold forceps for Helicobacter pylori testing. Localized mild inflammation characterized by congestion (edema) and erythema was found in the duodenal bulb and in the second part of the duodenum. Biopsies were taken with a cold forceps for evaluation of celiac disease. And giardia, whipple's disease, and enteritis One non-bleeding linear duodenal ulcer with no stigmata of bleeding was found in the second part of the duodenum. The lesion was 8 mm in largest dimension. The 3rd part of the duodenum was normal. Biopsies were taken with a cold forceps for evaluation of celiac disease. and to R/O giardia, whipple's disease, and enteritis Impression: - LA Grade A reflux esophagitis. - Hiatus hernia. - Gastritis. Biopsied. EGD REPORT [address] [address] NAME: AR VELÁSQUEZ : 32 STATUS : ADM IN [facility]#: [id number] AGE: 85 ADM/REG DATE : 10/03/16 MR#: [id number] REPORT SERV DATE: 10/03/16 DICTATED BY: LUKAS DENNY DATE: 10/03/16 REPORT STATUS : Draft TRANSCRIBED BY: [employer] DATE: 10/03/16 - Duodenitis. Biopsied. - One duodenal ulcer with clean base. - Normal 3rd part of the duodenum. Biopsied. Recommendation: - Use Protonix (pantoprazole) 40 mg PO BID. - Miralax 17 g (1 capful) in 8 oz water PO BID. - Await pathology results. - [facility]. Procedure Code(s): --- Professional --- 04307, Esophagogastroduodenoscopy, flexible, transoral; with biopsy, single or multiple Diagnosis Code(s): --- Professional --- K21.0, Gastro-esophageal reflux disease with esophagitis K44.9, Diaphragmatic hernia without obstruction or gangrene K29.70, Gastritis, unspecified, without bleeding K29.80, Duodenitis without bleeding K26.9, Duodenal ulcer, unspecified as acute or chronic, without hemorrhage or perforation R10.13, Epigastric pain R10.12, Left upper quadrant pain D50.9, Iron deficiency anemia, unspecified R12, Heartburn CPT copyright 2013 [employer]. All rights reserved. The codes documented in this report are preliminary and upon superintendent drilling and production review may be revised to meet current compliance requirements. Lukas Denny MD LUKAS DENNY MD 10/03/2016 5:11 PM This report has been signed electronically. Number of Addenda: 0 Note Initiated On: 10/03/2016 3:30 PM Scope Withdrawal Time 0 hours 0 minutes 0 seconds [address] [place] [address]
[2016-10-03 01:05] LABS: BASOPHILS 0.1 %; BASOPHILS ABSOLUTE 0.01 10/3/uL (0.0-0.16); EOSINOPHILS 1.2 %; HEMATOCRIT 21.7 % (40.0-51.0); HEMOGLOBIN 7.2 g/dL (13.6-17.8); IMMATURE GRANULOCYTES 0.1 %; IMMATURE GRANULOCYTES ABSOLUTE 0.01 10/3/uL (0.0-0.11); LYMPHOCYTES 9.6 %; LYMPHOCYTES ABSOLUTE 0.83 10/3/uL (0.67-4.30); MEAN CORPUS HGB CONC 33.2 g/dL (32.0-36.0); MEAN CORPUSCULAR HEMOGLOB 27.8 pg (26.0-34.0); MEAN CORPUSCULAR VOLUME 83.8 fL (80-100); MEAN PLATELET VOLUME 10.7 fL (9.2-13.0); MONOCYTES 6.3 %; MONOCYTES ABSOLUTE 0.55 10/3/uL (0.21-1.20); NEUTROPHILS 82.7 %; NEUTROPHILS ABSOLUTE 7.17 10/3/uL (2.02-8.40); PLATELET COUNT 179 10/3/uL (150-400); RBC DISTRIBUTION WIDTH 16.7 % (12.0-16.0); RED CELL COUNT 2.59 10/6/uL (4.7-6.1)
[2016-10-03 01:08] LABS: ER CBC TAT 0 Hrs 12 Mins; MANUAL DIFF NO %; WHITE BLOOD CELLS 8.7 10/3/uL (4.5-10.5)
[2016-10-03 01:11] LABS: INTERNATIONAL NORMAL RATI 1.1 UNITS (-); PARTIAL THROMBO TIME 37.6 SEC (22.5-37.2); PROTIME (NOT ORD) 14.4 SEC (12.0-14.5)
[2016-10-03 01:22] LABS: ALBUMIN 3.2 G/DL (3.5-5.0); ALKALINE PHOSPHATASE 67 U/L (45-117); BUN (BLOOD UREA NITROGEN) 44 MG/DL (6-23); CALCIUM, SERUM 8.9 MG/DL (8.5-10.4); CHLORIDE, SERUM 110 MMOL/L (96-112); CO2 (CARBON DIOXIDE) 24 MMOL/L (24-34); CREATININE 1.92 MG/DL (0.70-1.30); DIRECT BILIRUBIN 0.1 MG/DL (0.0-0.4); GFR AFRICAN AMERICAN 36 ML/MIN (>=60); GFR NON AFRICAN AMERICAN 31 ML/MIN (>=60); GLUCOSE, SERUM 212 MG/DL (60-99); INDIRECT BILIRUBIN(NOT ORDER) 0.4 MG/DL (0.1-0.9); POTASSIUM, SERUM 4.7 MMOL/L (3.5-5.3); SGOT(AST) 12 U/L (5-40); SGPT(ALT) 13 U/L (5-65); SODIUM, SERUM 143 MMOL/L (135-148); TOTAL BILIRUBIN 0.5 MG/DL (0-1.2); TOTAL PROTEIN 5.9 G/DL (6.0-8.5)
[2016-10-03 01:24] LABS: CHEST PAIN PROFILE TAT 0 Hrs 28 Mins; TROPONIN I 0.34 NG/ML (<0.05)
[2016-10-03] MEDS ORDERED: HALF81 PO (02:34)
[2016-10-03] MEDS ORDERED: LIPITOR80 MG PO (02:35)
[2016-10-03] MEDS ORDERED: CALTRA600D PO (02:35)
[2016-10-03] MEDS ORDERED: PLAVIX PO (02:35)
[2016-10-03] MEDS ORDERED: COREG3 PO (02:35)
[2016-10-03] MEDS ORDERED: L20 PO (02:35)
[2016-10-03] MEDS ORDERED: GLUCXL2.5 PO (02:37)
[2016-10-03] MEDS ORDERED: MYLICON 40 MG T40 MG PO (02:39)
[2016-10-03 09:52] LABS: BASOPHILS 0.3 %; BASOPHILS ABSOLUTE 0.02 10/3/uL (0.0-0.16); EOSINOPHILS 1.8 %; EOSINOPHILS ABSOLUTE 0.12 10/3/uL (0.0-0.53); HEMOGLOBIN 8.1 g/dL (13.6-17.8); IMMATURE GRANULOCYTES 0.2 %; IMMATURE GRANULOCYTES ABSOLUTE 0.01 10/3/uL (0.0-0.11); LYMPHOCYTES 28.4 %; LYMPHOCYTES ABSOLUTE 1.85 10/3/uL (0.67-4.30); MEAN CORPUS HGB CONC 31.6 g/dL (32.0-36.0); MEAN CORPUSCULAR HEMOGLOB 27.1 pg (26.0-34.0); MEAN CORPUSCULAR VOLUME 85.6 fL (80-100); MEAN PLATELET VOLUME 10.3 fL (9.2-13.0); MONOCYTES 8.3 %; MONOCYTES ABSOLUTE 0.54 10/3/uL (0.21-1.20); NEUTROPHILS ABSOLUTE 3.97 10/3/uL (2.02-8.40); PLATELET COUNT 173 10/3/uL (150-400); RBC DISTRIBUTION WIDTH 16.3 % (12.0-16.0); RED CELL COUNT 2.99 10/6/uL (4.7-6.1); WHITE BLOOD CELLS 6.5 10/3/uL (4.5-10.5)
[2016-10-03 09:55] LABS: HEMATOCRIT 25.6 % (40.0-51.0); MANUAL DIFF NO %
[2016-10-03 10:08] LABS: BUN (BLOOD UREA NITROGEN) 36 MG/DL (6-23); CALCIUM, SERUM 8.7 MG/DL (8.5-10.4); CHLORIDE, SERUM 113 MMOL/L (96-112); CK-MB 11.7 NG/ML; CKMB INDEX (NOT ORD) 8.7; CO2 (CARBON DIOXIDE) 25 MMOL/L (24-34); CPK 135 U/L (0-200); GFR AFRICAN AMERICAN 39 ML/MIN (>=60); GFR NON AFRICAN AMERICAN 34 ML/MIN (>=60); GLUCOSE, SERUM 152 MG/DL (60-99); PHOSPHORUS, SERUM 3.6 MG/DL (2.5-4.5); POTASSIUM, SERUM 4.4 MMOL/L (3.5-5.3); SODIUM, SERUM 145 MMOL/L (135-148); TROPONIN I 1.65 NG/ML (<0.05)
[2016-10-03 12:01] LABS: HEMATOCRIT 23.8 % (40.0-51.0); HEMOGLOBIN 7.8 g/dL (13.6-17.8)
[2016-10-03 19:23] LABS: HEMOGLOBIN 8.9 g/dL (13.6-17.8)
[2016-10-03 19:27] LABS: HEMATOCRIT 27.4 % (40.0-51.0)
[2016-10-03 19:38] LABS: CK-MB 10.4 NG/ML
[2016-10-03 19:39] LABS: CKMB INDEX (NOT ORD) 7.8; TROPONIN I 1.91 NG/ML (<0.05)
[2016-10-04 00:50] LABS: HEMOGLOBIN 7.9 g/dL (13.6-17.8)
[2016-10-04 04:24] LABS: BASOPHILS 0.2 %; BASOPHILS ABSOLUTE 0.01 10/3/uL (0.0-0.16); EOSINOPHILS 3.1 %; EOSINOPHILS ABSOLUTE 0.19 10/3/uL (0.0-0.53); HEMATOCRIT 26.2 % (40.0-51.0); HEMOGLOBIN 8.4 g/dL (13.6-17.8); IMMATURE GRANULOCYTES 0.2 %; IMMATURE GRANULOCYTES ABSOLUTE 0.01 10/3/uL (0.0-0.11); LYMPHOCYTES ABSOLUTE 1.11 10/3/uL (0.67-4.30); MEAN CORPUS HGB CONC 32.1 g/dL (32.0-36.0); MEAN CORPUSCULAR HEMOGLOB 27.5 pg (26.0-34.0); MEAN CORPUSCULAR VOLUME 85.9 fL (80-100); MONOCYTES 7.2 %; MONOCYTES ABSOLUTE 0.44 10/3/uL (0.21-1.20); NEUTROPHILS 71.3 %; NEUTROPHILS ABSOLUTE 4.39 10/3/uL (2.02-8.40); PLATELET COUNT 157 10/3/uL (150-400); RBC DISTRIBUTION WIDTH 16.4 % (12.0-16.0); RED CELL COUNT 3.05 10/6/uL (4.7-6.1); WHITE BLOOD CELLS 6.2 10/3/uL (4.5-10.5)
[2016-10-04 04:26] LABS: MANUAL DIFF NO %
[2016-10-04 04:57] LABS: CHLORIDE, SERUM 113 MMOL/L (96-112); CK-MB 7.2 NG/ML; CO2 (CARBON DIOXIDE) 26 MMOL/L (24-34); CPK 119 U/L (0-200); CREATININE 1.68 MG/DL (0.70-1.30); GFR AFRICAN AMERICAN 43 ML/MIN (>=60); GFR NON AFRICAN AMERICAN 37 ML/MIN (>=60); GLUCOSE, SERUM 129 MG/DL (60-99); POTASSIUM, SERUM 4.5 MMOL/L (3.5-5.3); SODIUM, SERUM 145 MMOL/L (135-148)
[2016-10-04 05:09] LABS: BUN (BLOOD UREA NITROGEN) 28 MG/DL (6-23); CKMB INDEX (NOT ORD) 6.1
[2016-10-04 05:10] LABS: TROPONIN I 2.45 NG/ML (<0.05)
[2016-10-05 06:36] LABS: BASOPHILS 0.2 %; BASOPHILS ABSOLUTE 0.01 10/3/uL (0.0-0.16); EOSINOPHILS 3.8 %; EOSINOPHILS ABSOLUTE 0.21 10/3/uL (0.0-0.53); HEMATOCRIT 25.3 % (40.0-51.0); IMMATURE GRANULOCYTES 0.4 %; IMMATURE GRANULOCYTES ABSOLUTE 0.02 10/3/uL (0.0-0.11); LYMPHOCYTES ABSOLUTE 1.28 10/3/uL (0.67-4.30); MANUAL DIFF NO %; MEAN CORPUS HGB CONC 31.6 g/dL (32.0-36.0); MEAN CORPUSCULAR HEMOGLOB 26.9 pg (26.0-34.0); MEAN CORPUSCULAR VOLUME 85.2 fL (80-100); MEAN PLATELET VOLUME 10.5 fL (9.2-13.0); MONOCYTES 10.1 %; MONOCYTES ABSOLUTE 0.56 10/3/uL (0.21-1.20); NEUTROPHILS 62.5 %; NEUTROPHILS ABSOLUTE 3.48 10/3/uL (2.02-8.40); PLATELET COUNT 142 10/3/uL (150-400); RBC DISTRIBUTION WIDTH 16.2 % (12.0-16.0); RED CELL COUNT 2.97 10/6/uL (4.7-6.1); WHITE BLOOD CELLS 5.6 10/3/uL (4.5-10.5)
[2016-10-05 06:51] LABS: CALCIUM, SERUM 7.6 MG/DL (8.5-10.4); CHLORIDE, SERUM 111 MMOL/L (96-112); CO2 (CARBON DIOXIDE) 26 MMOL/L (24-34); CREATININE 1.72 MG/DL (0.70-1.30); GFR AFRICAN AMERICAN 42 ML/MIN (>=60); GFR NON AFRICAN AMERICAN 36 ML/MIN (>=60); GLUCOSE, SERUM 138 MG/DL (60-99); SODIUM, SERUM 142 MMOL/L (135-148)
[2016-10-05 06:54] LABS: BUN (BLOOD UREA NITROGEN) 22 MG/DL (6-23); CK-MB 3.1 NG/ML; CPK 87 U/L (0-200); TROPONIN I 1.22 NG/ML (<0.05)
[2016-10-06 06:59] LABS: BASOPHILS 0.2 %; BASOPHILS ABSOLUTE 0.01 10/3/uL (0.0-0.16); EOSINOPHILS 4.3 %; EOSINOPHILS ABSOLUTE 0.23 10/3/uL (0.0-0.53); HEMATOCRIT 27.3 % (40.0-51.0); HEMOGLOBIN 8.6 g/dL (13.6-17.8); LYMPHOCYTES 23.3 %; LYMPHOCYTES ABSOLUTE 1.24 10/3/uL (0.67-4.30); MEAN CORPUS HGB CONC 31.5 g/dL (32.0-36.0); MEAN CORPUSCULAR HEMOGLOB 27.3 pg (26.0-34.0); MEAN CORPUSCULAR VOLUME 86.7 fL (80-100); MONOCYTES 11.4 %; MONOCYTES ABSOLUTE 0.61 10/3/uL (0.21-1.20); NEUTROPHILS 60.8 %; NEUTROPHILS ABSOLUTE 3.24 10/3/uL (2.02-8.40); PLATELET COUNT 154 10/3/uL (150-400); RBC DISTRIBUTION WIDTH 16.4 % (12.0-16.0); RED CELL COUNT 3.15 10/6/uL (4.7-6.1); WHITE BLOOD CELLS 5.3 10/3/uL (4.5-10.5)
[2016-10-06 07:00] LABS: MANUAL DIFF NO %
[2016-10-06 07:17] LABS: BUN (BLOOD UREA NITROGEN) 25 MG/DL (6-23); CALCIUM, SERUM 7.6 MG/DL (8.5-10.4); CHLORIDE, SERUM 107 MMOL/L (96-112); CO2 (CARBON DIOXIDE) 29 MMOL/L (24-34); CPK 71 U/L (0-200); CREATININE 1.78 MG/DL (0.70-1.30); GFR AFRICAN AMERICAN 40 ML/MIN (>=60); GFR NON AFRICAN AMERICAN 35 ML/MIN (>=60); GLUCOSE, SERUM 124 MG/DL (60-99); POTASSIUM, SERUM 3.9 MMOL/L (3.5-5.3); SODIUM, SERUM 141 MMOL/L (135-148)
[2016-10-06 07:18] LABS: CK-MB 2.9 NG/ML; TROPONIN I 0.79 NG/ML (<0.05)
[2016-10-07 06:20] LABS: BASOPHILS 0.2 %; BASOPHILS ABSOLUTE 0.01 10/3/uL (0.0-0.16); EOSINOPHILS 3.7 %; EOSINOPHILS ABSOLUTE 0.19 10/3/uL (0.0-0.53); HEMATOCRIT 28.2 % (40.0-51.0); IMMATURE GRANULOCYTES 0.4 %; IMMATURE GRANULOCYTES ABSOLUTE 0.02 10/3/uL (0.0-0.11); LYMPHOCYTES 24.3 %; LYMPHOCYTES ABSOLUTE 1.26 10/3/uL (0.67-4.30); MANUAL DIFF NO %; MEAN CORPUS HGB CONC 31.9 g/dL (32.0-36.0); MEAN CORPUSCULAR HEMOGLOB 27.5 pg (26.0-34.0); MEAN CORPUSCULAR VOLUME 86.2 fL (80-100); MEAN PLATELET VOLUME 10.5 fL (9.2-13.0); MONOCYTES 8.7 %; MONOCYTES ABSOLUTE 0.45 10/3/uL (0.21-1.20); NEUTROPHILS 62.7 %; NEUTROPHILS ABSOLUTE 3.25 10/3/uL (2.02-8.40); PLATELET COUNT 163 10/3/uL (150-400); RBC DISTRIBUTION WIDTH 16.2 % (12.0-16.0); RED CELL COUNT 3.27 10/6/uL (4.7-6.1); WHITE BLOOD CELLS 5.2 10/3/uL (4.5-10.5)
[2016-10-07 06:35] LABS: BUN (BLOOD UREA NITROGEN) 26 MG/DL (6-23); CALCIUM, SERUM 7.6 MG/DL (8.5-10.4); CHLORIDE, SERUM 109 MMOL/L (96-112); CO2 (CARBON DIOXIDE) 29 MMOL/L (24-34); CREATININE 1.61 MG/DL (0.70-1.30); GFR AFRICAN AMERICAN 45 ML/MIN (>=60); GFR NON AFRICAN AMERICAN 39 ML/MIN (>=60); GLUCOSE, SERUM 128 MG/DL (60-99); POTASSIUM, SERUM 4.2 MMOL/L (3.5-5.3); SODIUM, SERUM 142 MMOL/L (135-148)
[2016-10-07] MEDS ORDERED: MIRALAX POWDER1 PKT PO (09:20)
[2016-10-07] MEDS ORDERED: PROTONIX PO (09:21)
[2016-11-21] MEDS ORDERED: PLAVIX PO (11:26)
[2016-11-21] MEDS ORDERED: L40 PO (11:26)
[2016-11-21] MEDS ORDERED: COREG3 PO (11:26)
[2016-11-21] MEDS ORDERED: GLUCXL2.5 PO (11:27)
[2016-11-21] MEDS ORDERED: LIPITOR80 MG PO (11:27)
[2016-11-21] MEDS ORDERED: FERROUS SULF325 M1 PO (11:27)
[2016-11-21] MEDS ORDERED: NITROQUICK0.4 MG SL (11:28)
[2016-11-21] MEDS ORDERED: ZESTRIL20 MG PO (11:28)
[2016-11-21] MEDS ORDERED: CALTRA600D PO (11:29)
[2017-02-21] MEDS ORDERED: CORDARONE PO (12:16)
[2017-02-21] MEDS ORDERED: TESS PO (12:16)
[2017-02-21] MEDS ORDERED: APRES25 PO (12:17)
[2017-02-21] MEDS ORDERED: BUM2 PO (12:17)
[2017-02-21] MEDS ORDERED: MELATONIN5 M1 PO (12:18)
[2017-02-21] MEDS ORDERED: PROTONIX PO (12:18)
[2017-02-21] MEDS ORDERED: LOP25 PO (12:18)
[2017-02-21] MEDS ORDERED: NOVOPEN SC (12:18)
[2017-02-21] MEDS ORDERED: SENTAB PO (12:19)
[2017-02-21] MEDS ORDERED: DIABET2.5 PO (12:24)
== END 2016-10-07 11:00 | disposition home health service (06) | DRG 377 ==
LOC: ER 00:26 → 2SO 03:08
PROVIDERS: Internal Medicine; Internal Medicine Cardiovascular Disease; Internal Medicine Gastroenterology; Internal Medicine Pulmonary Disease; Specialist
PROC: 0DB98ZX Excision of Duodenum, Via Natural or Artificial Opening Endoscopic, Diagnostic (ICD-10-PCS; 2016-10-03)
PROC: 30233N1 Transfusion of Nonautologous Red Blood Cells into Peripheral Vein, Percutaneous Approach (ICD-10-PCS; 2016-10-03)
PROC: 0DB68ZX Excision of Stomach, Via Natural or Artificial Opening Endoscopic, Diagnostic (ICD-10-PCS; principal; 2016-10-03 16:06)
DX: K26.4 Chronic or unspecified duodenal ulcer with hemorrhage (principal); I21.4 Non-ST elevation (NSTEMI) myocardial infarction; N17.9 Acute kidney failure, unspecified; I50.22 Chronic systolic (congestive) heart failure; I13.0 Hypertensive heart and chronic kidney disease with heart failure and stage 1 through stage 4 chronic kidney disease, or unspecified chronic kidney disease; D62 Acute posthemorrhagic anemia; E11.22 Type 2 diabetes mellitus with diabetic chronic kidney disease; I48.91 Unspecified atrial fibrillation; J44.9 Chronic obstructive pulmonary disease, unspecified; N18.3 Chronic kidney disease, stage 3 (moderate); K44.9 Diaphragmatic hernia without obstruction or gangrene; I45.10 Unspecified right bundle-branch block; K29.80 Duodenitis without bleeding; K21.0 Gastro-esophageal reflux disease with esophagitis; K26.9 Duodenal ulcer, unspecified as acute or chronic, without hemorrhage or perforation; E78.5 Hyperlipidemia, unspecified; D50.9 Iron deficiency anemia, unspecified; I25.10 Atherosclerotic heart disease of native coronary artery without angina pectoris; K29.70 Gastritis, unspecified, without bleeding; R12 Heartburn; I34.0 Nonrheumatic mitral (valve) insufficiency; Z79.82 Long term (current) use of aspirin; Z79.02 Long term (current) use of antithrombotics/antiplatelets; Z79.899 Other long term (current) drug therapy; Z95.1 Presence of aortocoronary bypass graft
CPT/HCPCS: 36415; 71010; 71020; 74176; 80048; 80076; 82150; 82550; 82553; 82962; 83690; 83735; 83880; 84100; 84484; 85014; 85018; 85025; 85610; 85730; 86850; 86900; 86901; 86920; 88305; 93005; 94640; 99285; A9270-GY; C9113; J2405; J2916; P9016